=== PATIENT | female | born 1995 | race Caucasian/White ===

== ENCOUNTER 2024-09-01 18:57 | Emergency (ER) | payer SELFPAY ==
--- OUTSIDE RECORDS SUMMARY | 2024-09-01 18:59 | XMS_ITS | Encounter Summary ---
Author Organization [facility] Address [address] [place] [address] Phone Care Team Providers Care Operations Agent Name Role Phone Eduardo Lr MD Primary Care Provider Stormy Montanez MD Unavailable [phone] No, Physician Primary Care Provider [phone] Encounter Details Date Type Department Care Team (Late st Contact Info) Description 08/22/2017 Orders Only [facility] ProviderLashell MD [address] [place] [id number] Social History Tobacco Use Types Packs/Day Years Used Date Smoking Tobacco: Heavy Smoker Cigarettes 1 11 Smokeless Tobacco: Never Comments:Smoking History Pac ks/day: 1 Packs Alcohol Use Standard Drinks/Week Comments Yes 0 (1 standard drink = 0.6 oz pur e alcohol) Comments No Sex and Gender Information Value Date Recorded Sex Assigned at Not on file Legal Sex Female 9:49 AM SYSTEM ADMINISTRATION ADVISOR Gender Identity Female 06/24/2022 11:39 AM SYSTEM ADMINISTRATION ADVISOR Sexual Orientation Choose not to disclose 2022 11:39 AM SYSTEM ADMINISTRATION ADVISOR 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 [facility] Provider MD LAB BLOOD ORDERABLES Jaja l Result * DISCHARGE LABORATORY CUMULATIVE REPORT (08/22/2017 12:00 AM CDT) Narrative 08/22/2017 12:00 AM CDT Ordered by an unspecified provider. [facility] Provider MD LAB BLOOD ORDERABLES Jaja l Result documented in this encounter Visit Diagnoses Not on filedocumented in this encounter Additional Health Concerns Infection Onset Date Last Indicated Resolved Time COVID: Suspected 09/27/2021 09/27/2021 09/27/2021 9:00 PM CDT documented as of this encounter Care Teams Operations Agent Relationship Specialty Start Date End Date Eduardo Lr MD PCP - General 08/30/16 07/11/20 No, Physician PCP - General 10/16/23 Stormy Montanez MD [address] [place] [address] Obstetrics and Gynecology 11/20/16 documented as of this encounter
--- OUTSIDE RECORDS SUMMARY | 2024-09-01 18:59 | XMS_ITS | Encounter Summary ---
Author Organization [facility] Address [address] [place] [address] Phone Care Team Providers Care Field Health Officer Name Role Phone Eduardo Lr MD Primary Care Provider Stormy Montanez MD Unavailable [phone] No, Physician Primary Care Provider [phone] Encounter Details Date Type Department Care Team (Late st Contact Info) Description 09/29/2017 Orders Only [facility] Provider, MD Lashell [address] [place] [address] Social History Tobacco Use Types Packs/Day Years Used Date Smoking Tobacco: Heavy Smoker Cigarettes 1 11 Smokeless Tobacco: Never Comments:Smoking History Pac ks/day: 1 Packs Alcohol Use Standard Drinks/Week Comments Yes 0 (1 standard drink = 0.6 oz pur e alcohol) Comments No Sex and Gender Information Value Date Recorded Sex Assigned at Not on file Legal Sex Female 9:49 AM FORESTRY LABORER Gender Identity Female 06/24/2022 11:39 AM FORESTRY LABORER Sexual Orientation Choose not to disclose 2022 11:39 AM FORESTRY LABORER 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 us Historical Provider LAB BLOOD ORDERABLES Jaja l Result documented in this encounter Visit Diagnoses Not on filedocumented in this encounter Additional Health Concerns Infection Onset Date Last Indicated Resolved Time COVID: Suspected 09/27/2021 09/27/2021 09/27/2021 9:00 PM CDT documented as of this encounter Care Teams Field Health Officer Relationship Specialty Start Date End Date Eduardo Lr MD PCP - General 08/30/16 07/11/20 No, Physician PCP - General 10/16/23 Stormy Montanez MD [address] [place] [address] Obstetrics and Gynecology 11/20/16 documented as of this encounter
--- OUTSIDE RECORDS SUMMARY | 2024-09-01 19:00 | XMS_ITS | Referral Summary ---
Author Organization [facility] Address [address] [place] [address] Care Team Providers Care Delivery Coordinator Name Role Phone Stormy Montanez MD Unavailable [phone] No, Physician Primary Care Provider [phone] Encounters Date Type Department Care Team Description 08/10/2024 Telephone [facility] Obstetrical Gynecology [address] [place] [address] Chela Silver MD 07/06/2024 Telephone [facility] Obstetrical Gynecology [address] [place] [address] Chela Silver MD from Last 3 Months Allergies Active Allergy Reactions Criticality Noted Date Comments Latex Itching,Rash Medium Neuromuscular Blockers, Steroidal Prednisone Other (See comments) Low bone deterioration Medications valACYclovir (VALTREX) 500 mg tablet Take 1 tablet (500 mg total) by mouth daily 90 tablet 3 04/23/2024 Active metroNIDAZOLE (FLAGYL) 500 mg tablet Take 1 tablet (500 mg total) by mouth 2 (two) times a day for 7 days 14 tablet 08/11/2024 Active Problems Problem Noted Date Diagnosed Date Primary insomnia 09/04/2020 Assessment & Plan (09/04/2020 3:19 PM CDT): Remeron too strong - not taking Tried trazodone also Start Ambien - may take 1/2-1 tablet of 5mg pill PRN. Use sparingly Anxiety 07/24/2020 Assessment & Plan (09/04/2020 3:18 PM CDT): Improved with sertraline Assessment & Plan (07/24/2020 4:36 PM MEDICAL RECORD CLERK): Overall improved from previous, but recently worsening without medications. Start Sertraline - as above Encouraged to see counselor/therapist Given list of area counselors that she may try contacting for appt. 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 Continue current regimen with sertraline Assessment & Plan (09/04/2020 3:18 PM CDT): Improving, but not at goal Increase sertraline to 50mg daily Assessment & Plan (07/24/2020 4:34 PM MEDICAL RECORD CLERK): Depression and anxiety - not well controlled Start sertraline 25mg daily Discussed with patient about common side effects of medication including potential for worsening symptoms or new/worsening suicidal thoughts. Should this occur, patient should stop the medication immediately and call/RTC or go to ER. Medications for depression/anxiety can take up to 4-6 weeks to reach maximum effectiveness in the body. Call office to report any concerning side effects or new/worsening symptoms. Resolved Problems Problem Noted Date Diagnosed Date Resolved Date Adult BMI <19 kg/sq m 04/29/20172020 Abscess of right leg 04/29/2017 018 Assessment & Plan (05/02/2017 10:00 AM MEDICAL RECORD CLERK): I advised patient to continue on current dose of the Septra for the remaining 5 days of therapy is seeming to significantly help the improvement in wound. We also obtained a wound culture which will follow up with her on probably Friday or Friday of next week. Also close monitoring in our office within the next week to see if there is improvement symptoms. The area is somewhat quite indurated with expressive discharge with palpation around area and I am concerned that could be tunneled but she can't tolerate the pain of rechecking today. I did advised her that if symptoms worsen in between here in the week follow-up to come back in to our office or certainly Assessment & Plan (04/29/2017 4:18 PM MEDICAL RECORD CLERK): Still waiting for results of wound culture that was obtained on Friday to which I advised patient to continue on cephalexin as prescribed for the remaining 4 days of treatment but to cover better for Staph I prescribed Bactrim 1 tablet b.i.d. for the next 7 days on when to see her here in 3 days to see if there is any improvement in symptoms. Additionally I advised her of cleansing with Dial soap keeping open air as much as possible and certainly adequate hygiene as well. Close follow up in office regarding this condition and will see her here on Friday Annual physical exam 12/23/2016 021 Bacterial conjunctivitis 07/14/201411/2016 Overview (09/07/2016): Bacterial conjunctivitis Immunizations Immunization Administration Dates Next Due HPV9 06/09/2023,02/10/2023,12/17/2022 Hep A, Adult 04/09/2016 Influenza, Quadrivalent, Spl it, Preservative Free, Intradermal 04/09/2016 Influenza, Trivalent, IM (MDV) 01/31/2011 Influenza, Unspecified 03/02/2022(Deferr ed: Patient Refused),03/02/2020(Deferred: Patient Refused),03/02/2020(Deferred: Patient Refused),03/02/2020(Deferred: Patient Refused) TD Preservative Free 06/02/2010 Social History Tobacco Use Types Packs/Day Years Used Date Smoking Tobacco: Former Cigarettes 1 04 03 008 - 2019 Smokeless Tobacco: Never Tobacco Cessation:Counseling Given: Not Answered Comments:Smoking History Packs/day: 1 Packs Alcohol Use Standard Drinks/Week Comments Yes 0 (1 standard drink = 0.6 oz pur e alcohol) AUDIT-C Answer Date Recorded Q1: How often do you have a drink containing alc ohol? 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 Not on file Not on file Last Filed Vital Signs Vital Sign Reading Time Taken Comments Blood Pressure 120/76 04/23/2024 9:34 AM MEDICAL RECORD CLERK Pulse 86 10/30/2023 12:48 AM CDT Temperature 36.9 C (98.4 F) 10/29/2023 11:00 PM CDT Respiratory Rate 20 10/30/2023 12:48 AM CDT Oxygen Saturation 100% 10/29/2023 11:00 PM CDT Inhaled Oxygen Concentration - - Weight 69.9 kg (154 lb) 04/23/2024 9:34 AM MEDICAL RECORD CLERK Height 175.3 cm (5' 9.02 ) 04/23/2024 9:34 AM CS T Body Mass Index 22.73 04/23/2024 9:34 AM MEDICAL RECORD CLERK Plan of Treatment Not on file Procedures Procedure Name Priority Date/Time Associated Diagnosis Comments HEPATITIS C ANTIBODY Routine 04/23/2024 10:10 AM MEDICAL RECORD CLERK Well woman exam HIGH RISK HPV DNA DETECTION WITH GENOTYPING Routine 04/23/2024 9:54 AM MEDICAL RECORD CLERK from Last 3 Months or Most Recently Relevant to Health Maintenance Results * Hepatitis C antibody Blood (04/23/2024 10:10 AM MEDICAL RECORD CLERK) Hep C Ab Nonreactive Nonreactive Comment: Antibodies to HCV not detected. Does NOT exclude the possibility of recent exposure to HCV. Current interpretive data was last revised on 22 Interpretive Data Nonreactive: Antibodies to HCV not detected. Does NOT exclude the possibility of recent exposure to HCV. Equivocal: Equivocal for HCV antibodies. Supplemental molecular testing will be automatically performed to determine infection status in accordance with current CDC screening recommendations. Reactive: Positive for HCV antibodies. This may represent current or past HCV infection. Supplemental molecular testing will be automatically performed to determine current infection status in accordance with current CDC screening recommendations. Interpretive data was last revised on 2019. Blood 04/23/2024 10:1 0 AM MEDICAL RECORD CLERK 04/23/2024 2:22 PM MEDICAL RECORD CLERK us Chela Silver MD LAB MICROBIOLOGY - GENERAL ORDERABLES Final Result [facility] [address] Department [place] [address] * High Risk HPV DNA Detection with Genotyping (Molecular component) (04/23/2024 9:54 AM MEDICAL RECORD CLERK) HPV HR 16 Not Detected Not Detected [facility] Comment:Testing performed by : [facility] [place] [place]., [address] HPV HR 18 Not Detected Not Detected [facility] Comment:Testing performed by : [facility] [place] [place]., [address] HPV HR Non 16/18 Not Detected Not Detected [facility] Comment: Interpretive Data Nucleic acid amplification for detection of high-risk Human Papilloma virus (HPV) is performed by the Shivam Danielle 6800 HPV test. This assay specifically detects HPV-16 and HPV-18 genotypes. The following HPV genotypes are detected as high-risk HPV: HPV-31, 33, 35, ,39, 45, 51, 52, 56, 58, 59, 66, and 68. This assay has been approved by the [place] Food and Drug Administration for detection of HPV in cervical specimens collected by a physician using an endocervical brush/spatula or cervical broom and placed in the ThinPrep Pap Test PreservCyt collection containers. The performance characteristics of this test have been verified by the [facility] Molecular Infectious Disease laboratory. Correlate with separately reported cytology results, as applicable. Interpretive data last revised 22 Testing performed by: [facility] [place], [address] [facility], [place]., [address] Endocervical 04/23/2024 9:54 AM MEDICAL RECORD CLERK 04/27/2024 5:31 PM MEDICAL RECORD CLERK Chela Silver MD LAB BODY FLUIDS AND STOOLS ORDERABLES Final Result [facility] [address] [place] [address] [facility] from Last 3 Months or Most Recently Relevant to Health Maintenance Insurance [facility] IDPA IDPA Care Teams Delivery Coordinator Relationship Specialty Start Date End Date No, Physician PCP - General 10/16/23 Stormy Montanez MD [address] [place] [address] Obstetrics and Gynecology 11/20/16
--- OUTSIDE RECORDS SUMMARY | 2024-09-01 19:00 | XMS_ITS | Data Portability ---
Author Organization [place] - [place] [employer], [employer], [employer] - [id number] YOUSSEF MD [facility] Address [address] [place] [address] Assessment Encounter Date Assessment Date Assessment LastModified by Organization Details LastModified Time 08/04/2017 08/04/2017 Substance abuse Vulvovaginiti s Possible STD STD screening and vaginal cultures pelvic ultrasound will be requested later on this week. [email or web address] Not available 08/04/2017 15:50:04 08/11/2017 08/11/2017 Nexplanon removal [email or web address] Not available 08/11/2017 17:27:56 Plan of Treatment Reminders Order Date Submit Date Provider Last Modified By Organization Details Last Modified Time Details Appointments None recorded. Lab None recorded. Referral None recorded. Procedures None recorded. Surgeries None recorded. Imaging None recorded. Medication Orders Cleocin 100 mg vaginal suppositor y 2017 018 INTERFACE [id number], [address] [place], [address], 8 13:50:48 Patient TargetsNo targets recorded. Patient Instructions Encounter Date Encounter Id Patient Instructions Last Modified By Organization Details Last Modified Time 08/07/2017 [id number] bacterial vaginosis: care instructions [email or web address] Not available 08/07/2017 13:50:46 Reason for Referral None Reported. Results Created Date Observation Date Name Description Value Unit Range Abnormal Flag Note LastModifiedBy Organization Detail LastModifiedTime 08/05/19 18 08/05/2017 pap, IG + refle x HR HPV chlamydia, nuc. acid amp Negati ve negati ve Not Available [facility] ([facility]) [address] [facility], [place], [address], 08/06/2017 16:17:18 08/05/19 18 08/05/2017 pap, IG + refle x HR HPV gonococcus, nuc. acid amp Negati ve negati ve Not Available [facility] ([facility]) [address] [place], [address], 08/06/2017 16:17:18 08/05/19 18 08/06/2017 pap, IG + refle x HR HPV interpretati on NIL NEGAT SHANIQUA FOR INTRA EPITH ELIAL LESIO N AND MALIG MJ . Not Available [facility] ([facility]) [address] [place], [address], 08/06/2017 16:17:18 08/05/19 18 08/06/2017 pap, IG + refle x HR HPV category: NIL Negat shaniqua for Intra epith elial Lesio n Not Available [facility] ([facility]) [address] [place], [address], 08/06/2017 16:17:18 08/05/19 18 08/06/2017 pap, IG + refle x HR HPV infection: BVG PREDO MINAN CE OF [place] BACIL LI CONSI STENT WITH SHIFT IN VAGIN AL KELLEE IS PRESE NT. Not Available [facility] ([facility]) [address] [facility], [place], [address], 08/06/2017 16:17:18 08/05/19 18 08/06/2017 pap, IG + refle x HR HPV adequacy: SECNI Satis facto ry for evalu ation . No endoc ervic al compo nent is ident ified . Not Available [facility] ([facility]) [address] [place], [address], 08/06/2017 16:17:18 08/05/19 18 08/06/2017 pap, IG + refle x HR HPV clinician provided ICD10: Commen t Z11.3 Z12.4 Not Available [facility] ([facility]) [address] [place], [address], 08/06/2017 16:17:18 08/05/19 18 08/06/2017 pap, IG + refle x HR HPV performed by: Lissette Cleveland erd, Amber iverson Not Available [facility] ([facility]) [address] [place], [address], 08/06/2017 16:17:18 08/05/19 18 08/06/2017 pap, IG + refle x HR HPV pathologist provided ICD10: Lissette iverson R87.5 Not Available [facility] ([facility]) [address] [place], [address], 08/06/2017 16:17:18 08/05/19 18 08/06/2017 pap, IG + refle x HR HPV note: Lissette iverson The Pap smear is a scree gabriel test desig sheri to aid in the detec tion of maria esther ligna nt and malig nant condi tions of the uteri ne cervi x. It is not a diagn ostic proce dure and shoul d not be used as the sole means of detec ting cervi shiloh cance r. Both false -posi tive and false -nega tive repor ts do occur . Not Available [facility] ([facility]) [address] [place], [address], 08/06/2017 16:17:18 08/05/19 18 08/06/2017 pap, IG + refle x HR HPV test methodology: Lissette iverson This liqui d based ThinP rep(R ) pap test was scree sheri with the use of an image guide d syste m. Not Available [facility] ([facility]) [address] [place], [address], 08/06/2017 16:17:18 08/05/19 18 08/06/2017 pap, IG + refle x HR HPV . Lissette iverson The HPV DNA refle x crite liss were not met with this speci men resul t there fore, no HPV testi ng was perfo rmed. Not Available [facility] ([facility]) [address] [facility], [place], [address], 08/06/2017 16:17:18 08/05/19 18 08/07/2017 cultu re, urine urine culture,comp rehensive Final report Not Available [facility] ([facility]) [address] [facility], [place], [address], 08/07/2017 16:24:20 08/05/19 18 08/07/2017 cultu re, urine result 1 Commen t Mixed uroge nital kellee 10,00 0-25, 000 colon y formi ng units per mL Not Available [facility] ([facility]) [address] [facility], [place], [address], 08/07/2017 16:24:20 08/05/19 18 08/08/2017 cultu re, genit al, bacte rial genital culture, routine Final report abnormal Not Available [facility] ([facility]) [address] [facility], [place], [address], 08/08/2017 12:36:29 08/05/19 18 08/08/2017 cultu re, genit al, bacte rial result 1 Gardne rella vagina lis abnormal Light growt h Not Available [facility] ([facility]) [address] [facility], [place], [address], 08/08/2017 12:36:29 08/05/19 18 08/08/2017 cultu re, genit al, bacte rial result 2 Commen t No alyssa l kellee prese nt. Not Available [facility] ([facility]) [address] [place], [address], 08/08/2017 12:36:29 08/20/19 18 08/07/2017 US, pelvi s, trans abdom inal + trans vagin al No observ ation record ed. [email or web address] Not Available 08/01 13:26:36 Result Notes None recorded. Procedures Surgical History None recorded. Imaging Results Imaging Date Name Status LastModified by Organization Details LastModified Time 08/07/2017 US, pelvis, transabdominal + transvaginal completed [email or web address] Information not available 08/19/2017 13:26:36 Procedure Notes None recorded. Medical Equipment None Reported. Allergies Allergen ID Allergen Name Allergen Category Reaction Reaction Severity Criticality Documentation Date Start Date Code Code System Note Provider Name and Address Organization Details Recorded Time 057748 latex environme nt,medica tion Not available Not available Not available 08/04/2017 34608 91 RxNorm Jennifersoha [facility] 8 13:16:11 Medications Name Sig Start Date Stop Date Status Note LastModified by Organization Details LastModified Time clonidine HCl 0.1 mg tablet active Not Available Not Available Not Available fluconazole 150 mg tablet active Not Available Not Available Not Available valacyclovir 1 gram tablet TAKE 1 TABLET BY MOUTH EVERY 12 HOURS active Not Available Not Available No t Available naltrexone 50 mg tablet TAKE 1 TABLET BY MOUTH EVERY DAY active Not Available Not Available No t Available Monistat 7 2 % vaginal cream active Not Available Not Available Not Available olanzapine 5 mg tablet active Not Available Not Available No t Available Cleocin 100 mg vaginal suppository UNWRAP AND INSERT 1 SUPPOSITORY BY VAGINAL ROUTE EVERY DAY FOR 3 DAYS active Not Available Not Available No t Available hydroxyzine pamoate 50 mg capsule active Not Available Not Available N ot Available tramadol 50 mg tablet TAKE 1 TABLET BY MOUTH EVERY 4 TO 6 HOURS FOR 5 DAYS active Not Available Not Available No t Available baclofen 20 mg tablet active Not Available Not Available No t Available propranolol 10 mg tablet TAKE 1 TABLET BY MOUTH 3 TIMES A DAY active Not Available Not Available Not Available methocarbamo l 750 mg tablet active Not Available Not Available Not Available trazodone 100 mg tablet TAKE 1 AND 1/2 TO 2 FULL TABLETS EVERY NIGHT AT BEDTIME active Not Available Not Available N ot Available cephalexin 500 mg capsule TAKE ONE CAPSULE BY MOUTH TWICE A DAY active Not Available Not Available No t Available gabapentin 300 mg capsule active Not Available Not Available Not Available montelukast 10 mg tablet active Not Available Not Available Not Available prazosin 2 mg capsule TAKE 2 CAPSULES BY MOUTH AT BEDTIME active Not Available Not Available No t Available amoxicillin 875 mg-potassium clavulanate 125 mg tablet active Not Available Not Available Not Available escitalopram 10 mg tablet active Not Available Not Available Not Available escitalopram 20 mg tablet TAKE 1 TABLET BY MOUTH FOR 4 DAYS THEN INCREASE TO ONE AND HALF DAILY active Not Available Not Available N ot Available bupropion HCl XL 300 mg 24 hr tablet, extended release TAKE 1 TABLET BY MOUTH EVERY MORNING active Not Available Not Available No t Available Chest Congestion Relief 400 mg tablet active Not Available Not Available No t Available Suboxone 2 mg-0.5 mg sublingual film active Not Available Not Available Not Available Vitals Date Recorded Body height Heart rate Body mass index (BMI) Body weight Systolic blood pressure Diastolic blood pressure Provider Name and Address Organization Details Last Updated DateTime 8 173.99 cm 89 /min 23.1 kg/m2 08954.2 2 g 111 mm[Hg] 69 mm[Hg] [facility] [employer] [facility] 8 13:15:54 Social History Question Answer Notes LastModified by Organizat ion Details LastModified Time Tobacco Smoking Status Current Every Day Smoker [facility] [employer] 08/04/2017 13:16:30 What Was The Date Of Your Most Recent Tobacco Screening? 08/04/2017 Information n ot available 12/24/2018 Sex: Unknown Functional Status None recorded. Mental Status None recorded. Family History Relationship Description Onset Age of this Age Resolved Age Notes LastModified by Organization Details LastModified Time Father No current problems or disability [email or web address] Not available 08/04 13:16:20 Mother No current problems or disability [email or web address] Not available 08/04 13:16:20 Medical History No medical history recorded. Gynecological HistoryNo gynecological history recorded. Obstetrics History GPAL:G 0 P 0 0 0 0 Past Encounters Encounter ID Performer Location Encounter Start Date Encounter Closed Date Diagnosis/Indication Diagnosis SNOMED-CT Code Diagnosis ICD10 Code Diagnosis Note [id number] Asher Youssef MD [id number]_ [facility] [address] [place] [id number] 08/04/2017 12:23:07 08/04/2017 16:00:05 [id number] Asher Youssef MD [id number] [facility] [address] [place] [id number] 8 08/07/2017 12:56:35 08/07/2017 15:44:02 Bacterial vaginosis 024415964 N76.0 [id number] Asher Youssef MD [id number]_ [facility] [address] [id number] 08/11/2017 11:22:03 08/12/2017 08:31:48 [id number] Asher Youssef MD [id number]_ [facility] [address] [id number] 08/13/2017 11:30:17 08/13/2017 14:58:04 Health Concerns Section Related Observation LastModified by Organization Detai ls LastModified Time None Recorded Concern Status LastModified by Organization Details LastModified Time None Recorded Advance Directives Directive None Recorded Payers Encounter Date Sequence Insurance Name Policy Number Policy Del Castillo Covered Member ID Del Castillo Member ID Guarantor Name 08/04/2017 1 [employer] - [employer] - SELF FUNDED PLAN - PHCS (PPO) [facility] Satya Tay [id number] Nancie Tay 08/07/2017 1 [employer] - [employer] - SELF FUNDED PLAN - PHCS (PPO) [facility] Satya Tay [id number] Nancie Tay 08/11/2017 1 [employer] - [employer] - SELF FUNDED PLAN - PHCS (PPO) [facility] Satya Tay [id number] Nancie Tay 08/13/2017 1 [employer] - [employer] - SELF FUNDED PLAN - PHCS (PPO) [facility] Satya Tay [id number] Nancie Tay Notes Date Note Type Note Provider Name and Address Organization Details Recorded Time 08/04/2017 text/html New patient visi t for this 22-year-old female who is currently in rehabilitation from [place] the patient is doing well there states that she is feeling better and we'll probably never return to use of drugs again. The patient has not been sexually active in some time but feels that she may have been exposed to chlamydia prior to her moving to [place] and wishes to get checked she has a discharge with an odor. She is a nulliparous female has had chlamydia to other times. Gynecological the patient is not using any contraception and is concerned about her overall fertility.Patient states that she has never been and she has had multiple partners area the patient has the progestogen insert in her left arm which is now for 1 year.Past medical history is significant for alcohol her when and methods abusePast surgical history significant for right knee arthroscopic surgeryAllergies are significant to latex MD Kenna Allison[address] [facility], [address], [place], [address], [facility] [employer] [facility] 08/04/2017 15:50:33 08/07/2017 text/html Doug returns t o the office today for review of her ultrasound is generally unremarkable the uterus is within normal limits there is small amount of free fluid in the cervical area no masses the patient has had some pelvic pain STD cultures were negative the other culture is pending but the Pap smear is suggestive of BV the patient will be treated with Cleocin vaginal ovules. Also with regards to the progestogen inserted in the patient's left arm and is scheduled to be read on Friday. MD Rosio Allison [address] [facility], [address], [place], [address], [facility] [employer] 08/07/2017 15:39:44 08/11/2017 text/html new patient vismelissa t he was seen last week has a progestogen Nexplanon inserted in her left arm which is a year ago patient wishes to have it removed. MD Rosio Allison [address], [address], [place], [address], [facility] [employer] [facility] 08/13/2017 14:38:08 08/13/2017 text/html Doug returns t o the office today for an incision check status post removal of Implanon the incision is good a change in dressing was required. MD Rosio Allsion [address], [address], [place], [address], [facility] [employer] [facility] 08/13/2017 14:48:07 OBGyn Episode No OBEpisode recorded.
--- OUTSIDE RECORDS SUMMARY | 2024-09-01 19:00 | XMS_ITS | Encounter Summary ---
Author Organization [facility] Address [address] [place] [address] Phone Care Team Providers Care Machine Brusher Name Role Phone Eduardo Lr MD Primary Care Provider Stormy Montanez MD Unavailable [phone] No, Physician Primary Care Provider [phone] Encounter Details Date Type Department Care Team (Late st Contact Info) Description 05/20/2017 Orders Only [facility] Provider, MD Lashell [address] [place] [address] Social History Tobacco Use Types Packs/Day Years Used Date Smoking Tobacco: Heavy Smoker Cigarettes 1 11 Smokeless Tobacco: Never Comments:Smoking History Pac ks/day: 1 Packs Alcohol Use Standard Drinks/Week Comments Yes 0 (1 standard drink = 0.6 oz pur e alcohol) Comments No Sex and Gender Information Value Date Recorded Sex Assigned at Not on file Legal Sex Female 9:49 AM HEADHUNTER Gender Identity Female 06/24/2022 11:39 AM HEADHUNTER Sexual Orientation Choose not to disclose 2022 11:39 AM HEADHUNTER 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 us Historical Provider LAB BLOOD ORDERABLES Jaja l Result documented in this encounter Visit Diagnoses Not on filedocumented in this encounter Additional Health Concerns Infection Onset Date Last Indicated Resolved Time COVID: Suspected 09/27/2021 09/27/2021 09/27/2021 9:00 PM CDT documented as of this encounter Care Teams Machine Brusher Relationship Specialty Start Date End Date Eduardo Lr MD PCP - General 08/30/16 07/11/20 No, Physician PCP - General 10/16/23 Stormy Montanez MD [address] [place] [address] Obstetrics and Gynecology 11/20/16 documented as of this encounter
--- OUTSIDE RECORDS SUMMARY | 2024-09-01 19:00 | XMS_ITS | Clinical Summary ---
Author Organization [facility] Medical Office Building A Address [address] [place] [address] Care Team Providers Care Golf Coach Name Role Phone Stormy Montanez MD Unavailable [phone] No, Physician Primary Care Provider [phone] Allergies Active Allergy Reactions Criticality Noted Date [...] day for 7 days 14 tablet 08/11/2024 5 Active Problems Problem Noted Date Diagnosed Date Primary insomnia 09/04/2020 Assessment & Plan (09/04/2020 3:19 PM CDT): Remeron too strong - not taking Tried trazodone also Start Ambien - may take 1/2-1 tablet of 5mg pill PRN. Use sparingly Anxiety 07/24/2020 Assessment & Plan (09/04/2020 3:18 PM CDT): Improved with sertraline Assessment & Plan (07/24/2020 4:36 PM CASH APPLICATIONS REPRESENTATIVE): Overall improved from previous, but recently worsening without medications. Start Sertraline - as above Encouraged to see counselor/therapist Given list of area counselors that she may try contacting for appt. 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 Continue current regimen with sertraline Assessment & Plan (09/04/2020 3:18 PM CDT): Improving, but not at goal Increase sertraline to 50mg daily Assessment & Plan (07/24/2020 4:34 PM CASH APPLICATIONS REPRESENTATIVE): Depression and anxiety - not well controlled [...] 018 Assessment & Plan (05/02/2017 10:00 AM CASH APPLICATIONS REPRESENTATIVE): I advised patient to continue on current [...] certainly Assessment & Plan (04/29/2017 4:18 PM CASH APPLICATIONS REPRESENTATIVE): Still waiting for results of wound culture [...] Bacterial conjunctivitis 07/14/201411/2016 Overview (09/07/2016): Bacterial conjunctivitis Encounters Date Type Department Care Team Description 08/10/2024 Telephone [facility] Obstetrical Gynecology [address] [place] [address] Chela Silver MD 07/06/2024 Telephone [facility] Obstetrical Gynecology [address] [place] [address] Chela Silver MD from Last 3 Months Immunizations Immunization Administration Dates Next Due HPV9 06/09/2023,02/10/2023,12/17/2022 Hep A, Adult 04/09/2016 Influenza, Quadrivalent, Spl it, Preservative Free, Intradermal 04/09/2016 Influenza, Trivalent, IM (MDV) 01/31/2011 Influenza, Unspecified 03/02/2022(Deferr ed: Patient Refused),03/02/2020(Deferred: Patient Refused),03/02/2020(Deferred: Patient Refused),03/02/2020(Deferred: Patient Refused) TD Preservative Free 06/02/2010 Surgical History Surgery Date Site/Laterality Comments KNEE ARTHROSCOPY 06/02/2013 - 06/01/2014 Right WISDOM TOOTH EXTRACTION Medical History Medical History Date Comments Chlamydia 2016 Abnormal Pap smear of cervix 2016 ASC US, HPV (+) Positive test for herpes simplex virus (HSV) ant ibody 2017 types I & II History of drug use Anxiety Depression 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 Family History Medical History Relation Name Comments Pulmonary fibrosis Father Other Father's Brother usual inte rstitial pneumonia No Known Problems Mother Diabetes Paternal Grandmother Hypertension Paternal Grandmother Stroke Paternal Grandmother Anxiety disorder Sister Depression Sister Breast cancer Neg Hx Ovarian cancer Neg Hx Uterine cancer Neg Hx Relation Name Status Comments Father Father's Brother Mother Alive Paternal Grandmother Sister Alive Social History Tobacco Use Types Packs/Day Years Used Date Smoking Tobacco: Former Cigarettes 1 2018 Smokeless Tobacco: Never Tobacco Cessation:Counseling Given: Not Answered Comments:Smoking History Packs/day: 1 Packs Alcohol Use Standard Drinks/Week Comments Yes 0 (1 standard drink = 0.6 oz pur e alcohol) AUDIT-C Answer Date Recorded Q1: How often do you have a drink containing alc ohol? 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 Not on file Not on file Obstetrics History Para Term AB IAB SAB Ectopic Multiple Livin g Live Births 0 0 0 0 0 0 0 0 0 0 0 Last Filed Vital Signs Vital Sign Reading Time Taken Comments Blood Pressure 120/76 04/23/2024 9:34 AM CASH APPLICATIONS REPRESENTATIVE Pulse 86 10/30/2023 12:48 AM CDT Temperature 36.9 C (98.4 F) 10/29/2023 11:00 PM CDT Respiratory Rate 20 10/30/2023 12:48 AM CDT Oxygen Saturation 100% 10/29/2023 11:00 PM CDT Inhaled Oxygen Concentration - - Weight 69.9 kg (154 lb) 04/23/2024 9:34 AM CASH APPLICATIONS REPRESENTATIVE Height 175.3 cm (5' 9.02 ) 04/23/2024 9:34 AM CS T Body Mass Index 22.73 04/23/2024 9:34 AM CASH APPLICATIONS REPRESENTATIVE Plan of Treatment Health Maintenance Due Date Last Done Comments Varicella Vaccines (1 of 2 - 13+ 2-dose series) 2007 DTaP/Tdap/Td Vaccine (1 - Tdap) 06/03/2010 06/02/2010 Hepatitis B Screening 01/05/2012 Depression Screening 07/25/2023 07/25/2022, 07/24/2020, 07/24/2020, Additional history exists Influenza Vaccine (#1) 2024 04/09/2016, 2010 Cervical Cancer Screening 04/23/20252023, 04/23/2024, 12/05/2022 Regular Well Visit/Exam 18-64 04/23/2025 04/23/2024, 12/05/2022, 12/23/2016 HPV Vaccines Completed 06/09/2023, 01/31, 12/17/2022 Hepatitis C Screening Completed 04/23/2024 , 11/24/2023, 10/16/2023, Additional history exists Pneumococcal vaccine <65 Aged Out No longer eligible based on patient's age to complete this topic Procedures Procedure Name Priority Date/Time Associated Diagnosis Comments HEPATITIS C ANTIBODY Routine 04/23/2024 10:10 AM CASH APPLICATIONS REPRESENTATIVE Well woman exam HIGH RISK HPV DNA DETECTION WITH GENOTYPING Routine 04/23/2024 9:54 AM CASH APPLICATIONS REPRESENTATIVE from Last 3 Months or Most Recently Relevant to Health Maintenance Results * Hepatitis C antibody Blood (04/23/2024 10:10 AM CASH APPLICATIONS REPRESENTATIVE) Hep C Ab Nonreactive Nonreactive Comment: Antibodies [...] on 2019. Blood 04/23/2024 10:1 0 AM CASH APPLICATIONS REPRESENTATIVE 04/23/2024 2:22 PM CASH APPLICATIONS REPRESENTATIVE Chela Silver MD LAB MICROBIOLOGY - GENERAL ORDERABLES Final Result [facility] Department [place] [address] * High Risk HPV DNA Detection with Genotyping (Molecular component) (04/23/2024 9:54 AM CASH APPLICATIONS REPRESENTATIVE) HPV HR 16 Not Detected Not Detected [facility] Comment:Testing performed by : [facility], [address] [place]., [address] HPV HR 18 Not Detected Not Detected [facility] Comment:Testing performed by : [facility], [address] [place]., [address] HPV HR Non 16/18 Not Detected Not Detected [facility] Comment: Interpretive Data Nucleic acid amplification for [...] test have been verified by the [facility] Molecular Infectious Disease laboratory. Correlate with separately reported cytology results, as applicable. Interpretive data last revised 22 Testing performed by: [facility], [address] [place]., [address] Endocervical 04/23/2024 9:54 AM CASH APPLICATIONS REPRESENTATIVE 04/27/2024 5:31 PM CASH APPLICATIONS REPRESENTATIVE Chela Silver MD LAB BODY FLUIDS AND STOOLS ORDERABLES Final Result [facility] [address] [facility] [place] [employer] [place] [address] [facility] from Last 3 Months or Most Recently Relevant to Health Maintenance Insurance [employer] HMO [employer] HMO [place] IDPA Care Teams Golf Coach Relationship Specialty Start Date End Date No, Physician PCP - General 10/16/23 Stormy Montanez MD [address] [place] [address] Obstetrics and Gynecology 11/20/16
[2024-09-01 19:05] VITALS: BP 122/78; PULSE 111; RESP 16; TEMP 36.9; O2SAT 100
--- NOTE | 2024-09-01 19:10 | ED_ITS ---
HPI - Abdominal Pain General Chief Complaint: Abdominal Pain Stated Complaint: muscle pain/abdominal pain Time Seen by Provider: 09/01/24 19:10 Source: patient and RN notes reviewed Mode of arrival: ambulatory Limitations: no limitations History of Present Illness HPI narrative: 29-year-old female presented for complaint of left lower abdominal pain, left flank pain, constipation for 1 week. Also reports feeling extremely tired, headache and neck pain , and subjective fever. Denies nausea, vomiting. She took a laxative and a suppository yesterday. Related Data Allergies Allergy/AdvReac Type Severity Reaction Status Date / Time latex Allergy Intermediate Hives / Verified 09/01/24 19:13 Red Face prednisone Allergy Unknown Unknown Verified 09/01/24 19:13 Review of Systems Review of Systems: CONSTITUTIONAL: Denies body aches, fever, chills ENT: Denies rhinorrhea, congestion CARDIOVASCULAR: Denies chest pain, palpitations, or edema. RESPIRATORY: Denies cough or dyspnea. GASTROINTESTINAL: Endorses abdominal pain, constipation Denies nausea, vomiting, diarrhea GENITOURINARY: Denies dysuria, hematuria, or CVA tenderness. SKIN: Denies rash NEUROLOGIC: Denies headache, numbness, tingling, or weakness. All systems reviewed & are unremarkable except as noted in HPI and below PMFSH Comments At time of signature, I have reviewed and agree with nursing past medical, surgical, social and family history unless otherwise noted. Please see nursing chart for further information. There is no relevant family history pertinent to the presenting complaint Exam Narrative: GENERAL: Mildly ill appearing, tearful throughout encounter ENT: Mucous membranes pink and moist. CHEST: No respiratory distress. Clear to auscultation. HEART: Regular rate and rhythm. No murmur appreciated. Normal peripheral pulses. ABDOMEN: abd soft, nondistended, normal active bowel sounds. Tender abdomen left lower quadrant, Left CVA: No guarding, rebound tenderness, asymmetry SKIN: Warm, dry, no rash. Capillary refill normal. Normal skin turgor. NEURO: No focal deficits. Alert and oriented x3. Course Course Emergency Course: Patient is aware of diagnosis, understands and agrees to treatment plan. Anticipatory guidance given. Patient agrees to follow-up as directed and is aware of reasons to seek care at the emergency department. Portions of this record may have been created with voice recognition software Level of Care: Express Care Visit Vital Signs Vital signs: Vital Signs Temperature 98.4 F 09/01/24 19:05 Pulse Rate 111 H 09/01/24 19:05 Respiratory Rate 16 09/01/24 19:05 Blood Pressure 122/78 09/01/24 19:05 Pulse Oximetry 100 09/01/24 19:05 Oxygen Delivery Room Air 09/01/24 19:05 Temperature 98.4 F 09/01/24 19:05 Pulse Rate 111 H 09/01/24 19:05 Respiratory Rate 16 09/01/24 19:05 Blood Pressure 122/78 09/01/24 19:05 Pulse Oximetry 100 09/01/24 19:05 Oxygen Delivery Room Air 09/01/24 19:05 MDM - Abdominal Pain MDM Narrative Medical decision making narrative: Discussed physical exam findings; pt with abdominal pain, flank pain, constipat ion, fatigue, and headache. Advised ER transfer. Differential Diagnosis Differential diagnosis: Likely abdominal pain, acute appendicitis, calculus of kidney, constipation, diverticulitis, endometriosis, gastroenteritis, pancreatitis and small bowel obstruction Discharge Plan Discharge Clinical Impression: Abdominal pain Patient Disposition: Acute Care Hospital Condition: Stable Patient Language: Burmese Follow-up/Referrals: PHYSICIAN,BIOMASS PLANT TECHNICIAN [Primary Care Provider] - Time of Disposition: 19:22
== END 2024-09-01 19:45 | disposition short-term general hospital (02) ==
PROVIDERS: Emergency Provider Nurse Practitioner Family
DX: R10.32 Left lower quadrant pain (principal); R10.9 Unspecified abdominal pain
CPT/HCPCS: 99202; G0463

== ENCOUNTER 2024-09-02 20:06 | Emergency (ER) | payer SELFPAY ==
--- NOTE | ~2024-09-02 | XR_ITS ---
EXAM: XR abdomen/kub 1V DATE: 09/02/2024 22:35 HISTORY: concern for constipation . COMPARISON: None available. FINDINGS: Clear lung bases. Moderate volume of colonic fecal material, otherwise normal bowel gas pa ttern. No organomegaly. IUD over the midline pelvis. Pelvic phleboliths. Heterogeneous calcification over the left abdomen, may represent pancreatic calcification or ingested material. Regional bones an d soft tissues normal for age. IMPRESSION: No radiographic evidence of obstruction or ileus. Moderate volume of colonic feces. Reviewed, dictated and finalized at location K. IMPRESSION: No radiographic evidence of obstruction or ileus. Moderate volume o f colonic feces.
--- OUTSIDE RECORDS SUMMARY | 2024-09-02 20:08 | XMS_ITS | Encounter Summary ---
Author Organization [facility] Address [address] [place] [address] Phone Care Team Providers Care Armature Rewinder Name Role Phone Eduardo Lr MD Primary Care Provider Stormy Montanez MD Unavailable [phone] No, Physician Primary Care Provider [phone] Encounter Details Date Type Department Care Team (Late st Contact Info) Description 08/22/[address] 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 [facility] Provider MD LAB BLOOD ORDERABLES Jaja l Result * DISCHARGE LABORATORY CUMULATIVE REPORT (08/22/2017 12:00 AM CDT) Narrative 08/22/2017 12:00 AM CDT Ordered by an unspecified provider. [facility] Provider MD LAB BLOOD ORDERABLES Jaja l Result documented in this encounter Visit Diagnoses Not on filedocumented in this encounter Additional Health Concerns Infection Onset Date Last Indicated Resolved Time COVID: Suspected 09/27/2021 09/27/2021 09/27/2021 9:00 PM CDT documented as of this encounter Care Teams Armature Rewinder Relationship Specialty Start Date End Date Eduardo Lr MD PCP - General 08/30/16 07/11/20 No, Physician PCP - General 10/16/23 Stormy Montanez MD [address] [place] [address] Obstetrics and Gynecology 11/20/16 documented as of this encounter
--- OUTSIDE RECORDS SUMMARY | 2024-09-02 20:08 | XMS_ITS | Clinical Summary ---
Author Organization [facility] Medical Office Building A Address [address] [place] [address] Care Team Providers Care International Trade Specialist Name Role Phone Stormy Montanez MD Unavailable [phone] No, Physician Primary Care Provider [phone] Allergies Active Allergy Reactions Criticality Noted Date [...] sertraline Assessment & Plan (07/24/2020 4:36 PM INSPECTOR ASSEMBLIES AND INSTALLATIONS): Overall improved from previous, but recently worsening without medications. Start Sertraline - as above Encouraged to see counselor/therapist Given list of area counselors that she may try contacting for appt. 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 Continue current regimen with sertraline Assessment & Plan (09/04/2020 3:18 PM CDT): Improving, but not at goal Increase sertraline to 50mg daily Assessment & Plan (07/24/2020 4:34 PM INSPECTOR ASSEMBLIES AND INSTALLATIONS): Depression and anxiety - not well controlled [...] 018 Assessment & Plan (05/02/2017 10:00 AM INSPECTOR ASSEMBLIES AND INSTALLATIONS): I advised patient to continue on current [...] certainly Assessment & Plan (04/29/2017 4:18 PM INSPECTOR ASSEMBLIES AND INSTALLATIONS): Still waiting for results of wound culture [...] Type Department Care Team Description 08/10/2024 Telephone [facility] Obstetrical Gynecology [address] [place] [address] Chela Silver MD 07/06/2024 Telephone [facility] Obstetrical Gynecology [address] [place] [address] Chela Silver MD from Last [...] on file Legal Sex Female 9:49 AM INSPECTOR ASSEMBLIES AND INSTALLATIONS Gender Identity Female 06/24/2022 11:39 AM INSPECTOR ASSEMBLIES AND INSTALLATIONS Sexual Orientation Choose not to disclose 2022 11:39 AM INSPECTOR ASSEMBLIES AND INSTALLATIONS 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 Not on file Not on file Obstetrics History Para Term AB IAB SAB Ectopic Multiple Livin g Live Births 0 0 0 0 0 0 0 0 0 0 0 Last Filed Vital Signs Vital Sign Reading Time Taken Comments Blood Pressure 120/76 04/23/2024 9:34 AM INSPECTOR ASSEMBLIES AND INSTALLATIONS Pulse 86 10/30/2023 12:48 AM CDT Temperature 36.9 C (98.4 F) 10/29/2023 11:00 PM CDT Respiratory Rate 20 10/30/2023 12:48 AM CDT Oxygen Saturation 100% 10/29/2023 11:00 PM CDT Inhaled Oxygen Concentration - - Weight 69.9 kg (154 lb) 04/23/2024 9:34 AM INSPECTOR ASSEMBLIES AND INSTALLATIONS Height 175.3 cm (5' 9.02 ) 04/23/2024 9:34 AM CS T Body Mass Index 22.73 04/23/2024 9:34 AM INSPECTOR ASSEMBLIES AND INSTALLATIONS Plan of Treatment Health Maintenance Due Date [...] HEPATITIS C ANTIBODY Routine 04/23/2024 10:10 AM INSPECTOR ASSEMBLIES AND INSTALLATIONS Well woman exam HIGH RISK HPV DNA DETECTION WITH GENOTYPING Routine 04/23/2024 9:54 AM INSPECTOR ASSEMBLIES AND INSTALLATIONS from Last 3 Months or Most Recently Relevant to Health Maintenance Results * Hepatitis C antibody Blood (04/23/2024 10:10 AM INSPECTOR ASSEMBLIES AND INSTALLATIONS) Hep C Ab Nonreactive Nonreactive Comment: Antibodies [...] on 2019. Blood 04/23/2024 10:1 0 AM INSPECTOR ASSEMBLIES AND INSTALLATIONS 04/23/2024 2:22 PM INSPECTOR ASSEMBLIES AND INSTALLATIONS Chela Silver MD LAB MICROBIOLOGY - GENERAL ORDERABLES Final Result [facility] [facility] Department [place] [address] * High Risk HPV DNA Detection with Genotyping (Molecular component) (04/23/2024 9:54 AM INSPECTOR ASSEMBLIES AND INSTALLATIONS) HPV HR 16 Not Detected Not Detected [facility] Comment:Testing performed by : [facility], [address] [place]., [address] HPV HR 18 Not Detected Not Detected [facility] Comment:Testing performed by : [facility], [address] [place]., [address] HPV HR Non 16/18 Not Detected Not [...] have been verified by the [facility] Molecular Infectious Disease laboratory. Correlate with separately reported cytology results, as applicable. Interpretive data last revised 22 Testing performed by: [facility], [address] [place]., [address] Endocervical 04/23/2024 9:54 AM INSPECTOR ASSEMBLIES AND INSTALLATIONS 04/27/2024 5:31 PM INSPECTOR ASSEMBLIES AND INSTALLATIONS Chela Silver MD LAB BODY FLUIDS AND STOOLS ORDERABLES Final Result [facility] [address] [facility] [place] [address] [facility] from Last 3 Months or Most Recently Relevant to Health Maintenance Insurance [employer] HMO [employer] HMO [place] IDPA Care Teams International Trade Specialist Relationship Specialty Start Date End Date No, Physician PCP - General 10/16/23 Stormy Montanez MD [address] [place] [address] Obstetrics and Gynecology 11/20/16
--- OUTSIDE RECORDS SUMMARY | 2024-09-02 20:08 | XMS_ITS | Encounter Summary ---
Author Organization [facility] Address [address] [place] [address] Phone Care Team Providers Care Solar Energy Technician Name Role Phone Eduardo Lr MD Primary Care Provider Stormy Montanez MD Unavailable [phone] No, Physician Primary Care Provider [phone] Encounter Details Date Type Department Care Team (Late st Contact Info) Description 09/29/2017 Orders Only [facility] Provider, MD Lashell [address] [place] [address] Social History Tobacco Use Types Packs/Day Years Used Date Smoking Tobacco: Heavy Smoker Cigarettes 1 11 Smokeless Tobacco: Never Comments:Smoking History Pac ks/day: 1 Packs Alcohol Use Standard Drinks/Week Comments Yes 0 (1 standard drink = 0.6 oz pur e alcohol) Comments No Sex and Gender Information Value Date Recorded Sex Assigned at Not on file Legal Sex Female 9:49 AM TECHNOLOGIES DIVISION CHAIR Gender Identity Female 06/24/2022 11:39 AM TECHNOLOGIES DIVISION CHAIR Sexual Orientation Choose not to disclose 2022 11:39 AM TECHNOLOGIES DIVISION CHAIR 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
--- OUTSIDE RECORDS SUMMARY | 2024-09-02 20:09 | XMS_ITS | Encounter Summary ---
Author Organization [facility] Address [address] [place] [address] Phone Care Team Providers Care Account General Manager Name Role Phone Eduardo Lr MD Primary Care Provider Stormy Montanez MD Unavailable [phone] No, Physician Primary Care Provider [phone] Encounter Details Date Type Department Care Team (Late st Contact Info) Description 05/20/2017 Orders Only [facility] Provider, MD Lashell [address] [place] [address] Social History Tobacco Use Types Packs/Day Years Used Date Smoking Tobacco: Heavy Smoker Cigarettes 1 11 Smokeless Tobacco: Never Comments:Smoking History Pac ks/day: 1 Packs Alcohol Use Standard Drinks/Week Comments Yes 0 (1 standard drink = 0.6 oz pur e alcohol) Comments No Sex and Gender Information Value Date Recorded Sex Assigned at Not on file Legal Sex Female 9:49 AM CRIB PAD MAKER Gender Identity Female 06/24/2022 11:39 AM CRIB PAD MAKER Sexual Orientation Choose not to disclose 2022 11:39 AM CRIB PAD MAKER 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 us Historical Provider LAB BLOOD ORDERABLES Jaja l Result documented in this encounter Visit Diagnoses Not on filedocumented in this encounter Additional Health Concerns Infection Onset Date Last Indicated Resolved Time COVID: Suspected 09/27/2021 09/27/2021 09/27/2021 9:00 PM CDT documented as of this encounter Care Teams Account General Manager Relationship Specialty Start Date End Date Eduardo Lr MD PCP - General 08/30/16 07/11/20 No, Physician PCP - General 10/16/23 Stormy Montanez MD [address] [place] [address] Obstetrics and Gynecology 11/20/16 documented as of this encounter
--- OUTSIDE RECORDS SUMMARY | 2024-09-02 20:09 | XMS_ITS | Referral Summary ---
Author Organization [facility] Medical Office Building A Address [address] [place] [address] Care Team Providers Care Alligator Trapper Name Role Phone Stormy Montanez MD Unavailable [phone] No, Physician Primary Care Provider [phone] Encounters Date Type Department Care Team Description 08/10/2024 Telephone [facility] Medical [facility] Obstetrical Gynecology [address] [place] [address] Chela Silver MD 07/06/2024 Telephone [facility] Obstetrical Gynecology [address] [place] [address] Chela Silver MD from Last [...] sertraline Assessment & Plan (07/24/2020 4:36 PM SENIOR SPECIALIST): Overall improved from previous, but recently worsening without medications. Start Sertraline - as above Encouraged to see counselor/therapist Given list of area counselors that she may try contacting for appt. 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 Continue current regimen with sertraline Assessment & Plan (09/04/2020 3:18 PM CDT): Improving, but not at goal Increase sertraline to 50mg daily Assessment & Plan (07/24/2020 4:34 PM SENIOR SPECIALIST): Depression and anxiety - not well controlled [...] 018 Assessment & Plan (05/02/2017 10:00 AM SENIOR SPECIALIST): I advised patient to continue on current [...] certainly Assessment & Plan (04/29/2017 4:18 PM SENIOR SPECIALIST): Still waiting for results of wound culture [...] on file Legal Sex Female 9:49 AM SENIOR SPECIALIST Gender Identity Female 06/24/2022 11:39 AM SENIOR SPECIALIST Sexual Orientation Choose not to disclose 2022 11:39 AM SENIOR SPECIALIST 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 Not on file Last Filed Vital Signs Vital Sign Reading Time Taken Comments Blood Pressure 120/76 04/23/2024 9:34 AM SENIOR SPECIALIST Pulse 86 10/30/2023 12:48 AM CDT Temperature 36.9 C (98.4 F) 10/29/2023 11:00 PM CDT Respiratory Rate 20 10/30/2023 12:48 AM CDT Oxygen Saturation 100% 10/29/2023 11:00 PM CDT Inhaled Oxygen Concentration - - Weight 69.9 kg (154 lb) 04/23/2024 9:34 AM SENIOR SPECIALIST Height 175.3 cm (5' 9.02 ) 04/23/2024 9:34 AM CS T Body Mass Index 22.73 04/23/2024 9:34 AM SENIOR SPECIALIST Plan of Treatment Not on file Procedures Procedure Name Priority Date/Time Associated Diagnosis Comments HEPATITIS C ANTIBODY Routine 04/23/2024 10:10 AM SENIOR SPECIALIST Well woman exam HIGH RISK HPV DNA DETECTION WITH GENOTYPING Routine 04/23/2024 9:54 AM SENIOR SPECIALIST from Last 3 Months or Most Recently Relevant to Health Maintenance Results * Hepatitis C antibody Blood (04/23/2024 10:10 AM SENIOR SPECIALIST) Hep C Ab Nonreactive Nonreactive Comment: Antibodies [...] on 2019. Blood 04/23/2024 10:1 0 AM SENIOR SPECIALIST 04/23/2024 2:22 PM SENIOR SPECIALIST us Chela Silver MD LAB MICROBIOLOGY - GENERAL ORDERABLES Final Result [facility] [address] [place] [address] * High Risk HPV DNA Detection with Genotyping (Molecular component) (04/23/2024 9:54 AM SENIOR SPECIALIST) HPV HR 16 Not Detected Not Detected [facility] Comment:Testing performed by : [facility], [address] [place]., [address] HPV HR 18 Not Detected Not Detected [facility] Comment:Testing performed by : [facility], [address] [place]., [address] HPV HR Non 16/18 Not Detected Not [...] this test have been verified by the [facility] Molecular Infectious Disease laboratory. Correlate with separately reported cytology results, as applicable. Interpretive data last revised 22 Testing performed by: [facility], [address] [facility] [facility], [place]., [address] Endocervical 04/23/2024 9:54 AM SENIOR SPECIALIST 04/27/2024 5:31 PM SENIOR SPECIALIST Chela Silver MD LAB BODY FLUIDS AND STOOLS ORDERABLES Final Result [facility] [address] [place] [address] [facility] from Last 3 Months or Most Recently Relevant to Health Maintenance Insurance [facility] HMO [facility] H[facility] IDPA IDPA Care Teams Alligator Trapper Relationship Specialty Start Date End Date No, Physician PCP - General 10/16/23 Stormy Montanez MD [address] [place] [address] Obstetrics and Gynecology 11/20/16
--- OUTSIDE RECORDS SUMMARY | 2024-09-02 20:09 | XMS_ITS | Data Portability ---
Author Organization [place] [facility] [place] ilab, [employer], autoContract - [id number] YOUSSEF MD [facility] Address [address] [place] [address] Assessment Encounter Date Assessment Date Assessment LastModified [...] y 2017 018 INTERFACE [id number], [address] [place], [address], 8 13:50:48 Patient TargetsNo targets recorded. Patient Instructions Encounter Date Encounter Id Patient Instructions Last Modified By Organization Details Last Modified Time 08/07/2017 [id number] bacterial vaginosis: care instructions rconlen Not available 08/07/2017 13:50:46 Reason for Referral None Reported. Results Created Date Observation Date Name Description Value Unit Range Abnormal Flag Note LastModifiedBy Organization Detail LastModifiedTime 08/05/19 18 08/05/2017 pap, IG + refle x HR HPV chlamydia, nuc. acid amp Negati ve negati ve Not Available [facility] ([facility]) [address], [place], [address], 08/06/2017 16:17:18 08/05/19 18 08/05/2017 pap, IG + refle x HR HPV gonococcus, nuc. acid amp Negati ve negati ve Not Available [facility] ([facility]) [address] [place], [address], 08/06/2017 16:17:18 08/05/19 18 08/06/2017 pap, IG + refle x HR HPV interpretati on NIL NEGAT SHANIQUA FOR INTRA EPITH ELIAL LESIO N AND MALIG MJ . Not Available [facility] ([facility]) [address] [place], [address], 08/06/2017 16:17:18 08/05/19 18 08/06/2017 pap, IG + refle x HR HPV category: NIL Negat shaniqua for Intra epith elial Lesio n Not Available [facility] ([facility]) [address] [place], [address], 08/06/2017 16:17:18 08/05/19 18 08/06/2017 pap, IG + refle x HR HPV infection: BVG PREDO MINAN CE OF [place] BACIL LI CONSI STENT WITH SHIFT IN VAGIN AL KELLEE IS PRESE NT. Not Available [facility] ([facility]) [address] [facility], [place], [address], 08/06/2017 16:17:18 08/05/19 18 08/06/2017 pap, IG + refle x HR HPV adequacy: SECNI Satis facto ry for evalu ation . No endoc ervic al compo nent is ident ified . Not Available [facility] ([facility]) [address] [place], [address], 08/06/2017 16:17:18 08/05/19 18 08/06/2017 pap, IG + refle x HR HPV clinician provided ICD10: Commen t Z11.3 Z12.4 Not Available [facility] ([facility]) [address] [place], [address], 08/06/2017 16:17:18 08/05/19 18 08/06/2017 pap, IG + refle x HR HPV performed by: Lissette Cleveland erd, Amber iverson Not Available [facility] ([facility]) [address] [place], [address], 08/06/2017 16:17:18 08/05/19 18 08/06/2017 pap, IG + refle x HR HPV pathologist provided ICD10: Lissette iverson R87.5 Not Available [facility] ([facility]) [address] [place], [address], 08/06/2017 16:17:18 08/05/19 18 08/06/2017 pap, IG [...] ts do occur . Not Available [facility] ([facility]) [address] [place], [address], 08/06/2017 16:17:18 08/05/19 18 08/06/2017 pap, IG + refle x HR HPV test methodology: Lissette iverson This liqui d based ThinP rep(R ) pap test was scree sheri with the use of an image guide d syste m. Not Available [facility] ([facility]) [address] [place], [address], 08/06/2017 16:17:18 08/05/19 18 08/06/2017 pap, IG + refle x HR HPV . Lissette iverson The HPV DNA refle x crite liss were not met with this speci men resul t there fore, no HPV testi ng was perfo rmed. Not Available [facility] ([facility]) [address] [facility], [place], [address], 08/06/2017 16:17:18 08/05/19 18 08/07/2017 cultu re, urine urine culture,comp rehensive Final report Not Available [facility] ([facility]) [address] [facility], [place], [address], 08/07/2017 16:24:20 08/05/19 18 08/07/2017 cultu re, urine result 1 Commen t Mixed uroge nital kellee 10,00 0-25, 000 colon y formi ng units per mL Not Available [facility] ([facility]) [address] [facility], [place], [address], 08/07/2017 16:24:20 08/05/19 18 08/08/2017 cultu re, genit al, bacte rial genital culture, routine Final report abnormal Not Available [facility] ([facility]) [address] [facility], [place], [address], 08/08/2017 12:36:29 08/05/19 18 08/08/2017 cultu re, genit al, bacte rial result 1 Gardne rella vagina lis abnormal Light growt h Not Available [facility] ([facility]) [address] [facility], [place], [address], 08/08/2017 12:36:29 08/05/19 18 08/08/2017 cultu re, genit al, bacte rial result 2 Commen t No alyssa l kellee prese nt. Not Available [facility] ([facility]) [address] [place], [address], 08/08/2017 12:36:29 08/20/19 18 08/07/2017 US, pelvi s, trans abdom inal + trans vagin al No observ ation record ed. [email or web address] Not Available 08/01 13:26:36 Result Notes None recorded. Procedures Surgical History None recorded. Imaging Results Imaging Date Name Status LastModified by Organization Details LastModified Time 08/07/2017 US, pelvis, transabdominal + transvaginal completed [email or web address] Information not available 08/19/2017 13:26:36 Procedure Notes None recorded. Medical Equipment None Reported. Allergies Allergen ID Allergen Name Allergen Category Reaction Reaction Severity Criticality Documentation Date Start Date Code Code System Note Provider Name and Address Organization Details Recorded Time [id number] latex environme nt,medica tion Not available Not available Not available 08/04/2017 33969 91 RxNorm Jennifersoha Fortune[facility] 8 13:16:11 Medications Name Sig Start Date [...] 8 173.99 cm 89 /min 23.1 kg/m2 80151.2 2 g 111 mm[Hg] 69 mm[Hg] [facility] [employer] [facility] 8 13:15:54 Social History Question Answer Notes LastModified by Organizat ion Details LastModified Time Tobacco Smoking Status Current Every Day Smoker [facility] [employer] 08/04/2017 13:16:30 What Was The Date Of Your Most Recent Tobacco Screening? 08/04/2017 Information n ot available 12/24/2018 Sex: Unknown Functional Status None recorded. Mental Status None recorded. Family History Relationship Description Onset Age of this Age Resolved Age Notes LastModified by Organization Details LastModified Time Father No current problems or disability [email or web address] Not available 08/04 13:16:20 Mother No current problems or disability [email or web address] Not available 08/04 13:16:20 Medical History No medical history recorded. Gynecological HistoryNo gynecological history recorded. Obstetrics History GPAL:G 0 P 0 0 0 0 Past Encounters Encounter ID Performer Location Encounter Start Date Encounter Closed Date Diagnosis/Indication Diagnosis SNOMED-CT Code Diagnosis ICD10 Code Diagnosis Note [id number] Asher Youssef MD [id number]_ [facility] [address] [place] [id number] 08/04/2017 12:23:07 08/04/2017 16:00:05 [id number] Asher Youssef MD [id number] [facility] [address] [place] [id number] 08/07/2017 12:56:35 08/07/2017 15:44:02 Bacterial vaginosis 274152276 N76.0 [id number] Asher Youssef MD [id number]_ [facility] [address] [id number] 08/11/2017 11:22:03 08/12/2017 08:31:48 [id number] Asher Youssef MD [id number]_ [facility] [address] [phone] 08/13/2017 11:30:17 08/13/2017 14:58:04 Health Concerns [...] - SELF FUNDED PLAN - PHCS (PPO) [facility] Satya Tay [id number] Nancie Tay 08/07/2017 1 [employer] - [employer] - SELF FUNDED PLAN - PHCS (PPO) [facility] Satya Tay [id number] Nancie Tay 08/11/2017 1 [employer] - [employer] - SELF FUNDED PLAN - PHCS (PPO) [facility] Satya Tay [id number] Nancie Tay 08/13/2017 1 [employer] - [employer]ICAL PLANS - SELF FUNDED PLAN - PHCS (PPO) [facility] Satya Tay [id number] Nancie Tay Notes Date Note Type Note Provider Name and Address Organization Details Recorded Time 08/04/2017 text/html New patient visi t for this 22-year-old female who is currently in rehabilitation from [place] the patient is doing well there states that she is feeling better and we'll probably never return to use of drugs again. The patient has not been sexually active in some time but feels that she may have been exposed to chlamydia prior to her moving to [place] and wishes to get checked she has [...] latex MD Kenna Allison[address] [facility], [address], [place], [address], [facility] [employer] [facility] 08/04/2017 15:50:33 08/07/2017 text/html Doug returns t [...] Friday. MD Rosio Allison [address] [facility], [address], [place], [address], [facility] [employer] 08/07/2017 15:39:44 08/11/2017 text/html new patient vismelissa t he was seen last week has a progestogen Nexplanon inserted in her left arm which is a year ago patient wishes to have it removed. MD Rosio Allison [address], [address], [place], [address], [facility] [employer] [facility] 08/13/2017 14:38:08 08/13/2017 text/html Doug returns t o the office today for an incision check status post removal of Implanon the incision is good a change in dressing was required. MD Rosio Allison [address], [address], [place], [address], [facility] 08/13/2017 14:48:07 OBGyn Episode No OBEpisode recorded.
[2024-09-02 20:12] VITALS: BP 128/79; PULSE 120; RESP 16; TEMP 39.4; O2SAT 100
[2024-09-02 21:28] VITALS: BP 121/73; PULSE 105; RESP 14; TEMP 37.7; O2SAT 100
[2024-09-02 21:29] VITALS: BP 121/73; PULSE 108; RESP 19
[2024-09-02 21:31] VITALS: BP 109/87; PULSE 110; RESP 15
[2024-09-02 21:42] LABS: Basophils Percent Auto 0.2 % (0.2-1.2); Hematocrit 36.2 % (37.0-47.0); Hemoglobin 11.5 g/dL (12.0-15.0); Immature Granulocyte Absolute 0.11 K/mm3 (0.00-0.031); Lymphocytes Absolute Auto 0.68 K/mm3 (0.9-3.2); Mean Corpuscular HGB Conc 31.8 g/dl (32-36); Mean Corpuscular Hemoglobin 29.1 pg (26-34); Mean Corpuscular Volume 91.6 fl (80-100); Mean Platelet Volume 9.6 fl (7.4-10.4); Monocytes Absolute Auto 1.4 K/mm3 (0.1-0.6); Monocytes Percent Auto 12.2 % (2.6-8.5); Neutrophils Absolute Auto 9.2 K/mm3 (1.3-6.7); Neutrophils Percent Auto 80.6 % (45.5-73.1); Platelet Count Result 224 k/mm3 (150-375); Red Blood Count 3.95 M/mm3 (4.2-5.4); Red Cell Distribution Width 12.8 % (11.5-14.5); White Blood Count 11.4 K/mm3 (4.5-10.0)
[2024-09-02 21:46] VITALS: BP 100/56; PULSE 102; RESP 20; O2SAT 97
[2024-09-02 21:49] LABS: Alanine Aminotransferase 76 U/L (6-35); Alkaline Phosphatase 186 U/L (38-126); Anion Gap 7 mmol/L (4-12); Aspartate Amino Transferase 58 U/L (14-36); Bilirubin,Total 0.8 mg/dL (0.2-1.3); Blood Urea Nitrogen 10 mg/dL (7-17); Calcium 8.8 mg/dL (8.4-10.2); Carbon Dioxide 28 mmol/L (22-30); Chloride 95 mmol/L (98-107); Estimated CRCL calculation 87 ml/min; Estimated Glomerular Filt Rate > 60; Glucose 111 mg/dL (65-110); Lipase 26 U/L (23-300); Sodium 130 mmol/L (137-145)
--- NOTE | 2024-09-02 21:56 | ED_ITS ---
HPI - Abdominal Pain General Chief Complaint: Abdominal Pain Stated Complaint: LLQ pain, constipation-sent by Time Seen by Provider: 09/02/24 21:19 History of Present Illness HPI narrative: Patient is a 29-year-old female who presents to the ER with complaints of rectal pain that started approximately 1 week ago. She reports she had ?rough anal sex and has been unable to have a bowel movement since then. Patient reports at home she is taking milk of magnesia without any relief. She also endorses a headache for the past 3 days. Patient denies any medical history relevant to this ER visit. Related Data Allergies Allergy/AdvReac Type Severity Reaction Status Date / Time latex Allergy Intermediate Hives / Verified 09/01/24 19:13 Red Face prednisone Allergy Unknown Unknown Verified 09/01/24 19:13 Review of Systems 2 Review of Systems: All systems reviewed & are unremarkable except as noted in HPI and below Exam 2 Narrative: GENERAL: Well appearing, well-nourished, non-toxic, in mild distress. HEAD: Normocephalic, atraumatic. NECK: Supple. No adenopathy, no masses. RESPIRATORY: Airway patent, respirations nonlabored. Clear to auscultation bilaterally, no rales, rhonchi, wheezing. CARDIOVASCULAR: Regular rate and rhythm without murmurs, rubs, or gallops. Peripheral pulses 2+ and equal bilaterally. ABDOMINAL: Soft, tender bilateral lower quadrants, nondistended, no hepatosplenomegaly. Normoactive BS. MUSCULOSKELETAL: Moves all extremities. Strength/ROM intact without gross deformities. SKIN: Warm, dry, normal color. No rashes. NEURO: A&O X3. Speech clear. Cranial nerves II-XII intact. No ataxic movements. PSYCHIATRIC: Tearful at time of examination Course Vital Signs Vital signs: Vital Signs Temperature 39.4 C H 09/02/24 20:12 Pulse Rate 120 H 09/02/24 20:12 Respiratory Rate 16 09/02/24 20:12 Blood Pressure 128/79 09/02/24 20:12 Pulse Oximetry 100 09/02/24 20:12 Oxygen Delivery Room Air 09/02/24 20:12 Temperature 37.7 C H 09/02/24 21:28 Pulse Rate 105 H 09/02/24 21:28 Respiratory Rate 14 09/02/24 21:28 Blood Pressure 121/73 09/02/24 21:28 Pulse Oximetry 100 09/02/24 21:28 Oxygen Delivery Room Air 09/02/24 20:12 MDM - Abdominal Pain MDM Narrative Medical decision making narrative: Patient is a 29-year-old female who presents to the ER with complaints of rectal pain that started approximately 1 week ago. She reports she had ?rough anal sex and has been unable to have a bowel movement since then. Patient reports at home she is taking milk of magnesia without any relief. She also endorses a headache for the past 3 days. Patient denies any medical history relevant to this ER visit. Labs Ordered: UA, CBC, CMP, lipase, urine hCG, COVID/flu/RSV swab Imaging Ordered: Abdominal x-ray Medications Ordered: Tylenol 1 g p.o., ciprofloxacin 500 mg p.o. Results: Patient's abdominal x-ray indicates No radiographic evidence of obstruction or ileus. Moderate volume of colonic feces. Patient's urinalysis indicates patient has a UTI. Diagnosis: Constipation, urinary tract infection Patient Education/Shared MDM: Results are lab work and x-ray shared with patient. Patient was offered an abdominal CT scan but she declines stating ?I just want to go home. She declines any recent alcohol use or upper abdominal pain. Pt endorses improvement following medication administration. She was strongly advised to maintain hydration status upon discharge and follow-up with her PCP as soon as possible. She will be discharged home with a prescription for Miralax, Colace, Ciprofloxacin and Pyridium. Strict return precautions provided, especially if symptoms haven't improved within 24 hours or worsen. Patient verbalized understanding and is in agreement with plan. Vital signs stable at time of discharge. All questions answered. Differential Diagnosis Differential diagnosis: Likely abdominal pain, acute appendicitis, constipation, gastroenteritis and small bowel obstruction Lab Data Attestation: I reviewed the patient's lab results. 09/02/24 21:34 09/02/24 21:34 Labs: Lab Results 09/02/24 09/02/24 09/02/24 Range/Units 21:31 21:34 22:39 WBC 11.4 H (4.5-10.0) K/mm3 RBC 3.95 L (4.2-5.4) M/mm3 Hgb 11.5 L (12.0-15.0) g/dL Hct 36.2 L (37.0-47.0) % MCV 91.6 (80-100) fl MCH 29.1 (26-34) pg MCHC 31.8 L (32-36) g/dl RDW 12.8 (11.5-14.5) % Plt Count 224 (150-375) k/mm3 MPV 9.6 (7.4-10.4) fl Immature Gran % (Auto) 1.0 H (0-0.5) % Neut % (Auto) 80.6 H (45.5-73.1) % Lymph % (Auto) 6.0 L (18.3-44.2) % Randolph % (Auto) 12.2 H (2.6-8.5) % Eos % (Auto) 0.0 (0-4.4) % Baso % (Auto) 0.2 (0.2-1.2) % Lymph # (Auto) 0.68 L (0.9-3.2) K/mm3 Randolph # (Auto) 1.4 H (0.1-0.6) K/mm3 Eos # (Auto) 0.0 (0-0.3) K/mm3 Baso # (Auto) 0.0 (0.0-0.1) K/mm3 Abs Immat Gran (auto) 0.11 H (0.00-0.031) K/mm3 Absolute Neuts (auto) 9.2 H (1.3-6.7) K/mm3 Absolute Nucleated RBC 0.000 (0.0-0.012) K/mm3 Nucleated RBC % 0.0 (0.0-0.2) % Sodium 130 L (137-145) mmol/L Potassium 4.0 (3.4-5.0) mmol/L Chloride 95 L (98-107) mmol/L Carbon Dioxide 28 (22-30) mmol/L Anion Gap 7 (4-12) mmol/L BUN 10 (7-17) mg/dL Creatinine 0.86 (0.7-1.0) mg/dL Estim Creat Clear Calc 87 ml/min Estimated GFR > 60 (59 - ) Glucose 111 H (65-110) mg/dL Calcium 8.8 (8.4-10.2) mg/dL Total Bilirubin 0.8 (0.2-1.3) mg/dL AST 58 H (14-36) U/L ALT 76 H (6-35) U/L Alkaline Phosphatase 186 H (38-126) U/L Total Protein 7.0 (6.3-8.2) g/dL Albumin 4.0 (3.5-5.1) g/dL Lipase 26 (23-300) U/L Urine Color Yellow (Yellow) Urine Appearance Cloudy H (Clear) Urine pH 6.0 (5.0-9.0) Ur Specific [place] 1.016 (1.001-1.035) Urine Protein 2+ H (Negative) mg/dL Urine Glucose (UA) Negative (Negative) mg/dL Urine Ketones Trace H (Negative) mg/dL Ur Blood (Man) 2+ H (Negative) Urine Nitrate Positive H (Negative) Urine Bilirubin Negative (Negative) Urine Urobilinogen 1.0 (<2.0) mg/dL Leukocyte Esterase Rfl 2+ H (Negative) ROCHELLE/UL Urine RBC 6-10 H (0-2) /hpf Urine WBC 51-100 H (0-3) /hpf Ur Squamous Epith Cells Moderate (Few) /hpf Urine Bacteria 4+ H /hpf Urine Casts 0-2 POC Urine HCG, Qual (Negative) Influenza A (RT-PCR) Negative (Negative) Influenza B (RT-PCR) Negative (Negative) RSV (RT-PCR) Negative (Negative) SARS-CoV-2 RNA (RT-PCR) Negative (Negative) 09/02/24 Range/Units 22:46 WBC (4.5-10.0) K/mm3 RBC (4.2-5.4) M/mm3 Hgb (12.0-15.0) g/dL Hct (37.0-47.0) % MCV (80-100) fl MCH (26-34) pg MCHC (32-36) g/dl RDW (11.5-14.5) % Plt Count (150-375) k/mm3 MPV (7.4-10.4) fl Immature Gran % (Auto) (0-0.5) % Neut % (Auto) (45.5-73.1) % Lymph % (Auto) (18.3-44.2) % Randolph % (Auto) (2.6-8.5) % Eos % (Auto) (0-4.4) % Baso % (Auto) (0.2-1.2) % Lymph # (Auto) (0.9-3.2) K/mm3 Randolph # (Auto) (0.1-0.6) K/mm3 Eos # (Auto) (0-0.3) K/mm3 Baso # (Auto) (0.0-0.1) K/mm3 Abs Immat Gran (auto) (0.00-0.031) K/mm3 Absolute Neuts (auto) (1.3-6.7) K/mm3 Absolute Nucleated RBC (0.0-0.012) K/mm3 Nucleated RBC % (0.0-0.2) % Sodium (137-145) mmol/L Potassium (3.4-5.0) mmol/L Chloride (98-107) mmol/L Carbon Dioxide (22-30) mmol/L Anion Gap (4-12) mmol/L BUN (7-17) mg/dL Creatinine (0.7-1.0) mg/dL Estim Creat Clear Calc ml/min Estimated GFR (59 - ) Glucose (65-110) mg/dL Calcium (8.4-10.2) mg/dL Total Bilirubin (0.2-1.3) mg/dL AST (14-36) U/L ALT (6-35) U/L Alkaline Phosphatase (38-126) U/L Total Protein (6.3-8.2) g/dL Albumin (3.5-5.1) g/dL Lipase (23-300) U/L Urine Color (Yellow) Urine Appearance (Clear) Urine pH (5.0-9.0) Ur Specific [place] (1.001-1.035) Urine Protein (Negative) mg/dL Urine Glucose (UA) (Negative) mg/dL Urine Ketones (Negative) mg/dL Ur Blood (Man) (Negative) Urine Nitrate (Negative) Urine Bilirubin (Negative) Urine Urobilinogen (<2.0) mg/dL Leukocyte Esterase Rfl (Negative) ROCHELLE/UL Urine RBC (0-2) /hpf Urine WBC (0-3) /hpf Ur Squamous Epith Cells (Few) /hpf Urine Bacteria /hpf Urine Casts POC Urine HCG, Qual Negative (Negative) Influenza A (RT-PCR) (Negative) Influenza B (RT-PCR) (Negative) RSV (RT-PCR) (Negative) SARS-CoV-2 RNA (RT-PCR) (Negative) Imaging Data Attestation: I personally reviewed and interpreted this imaging study as follows: Radiologist's impression: ITS Impressions Abdomen X-Ray 09/02/24 22:45 IMPRESSION: No radiographic evidence of obstruction or ileus. Moderate volume of colonic feces. Discharge Plan Discharge Clinical Impression: Constipation, Urinary tract infection, Dehydration, mild Patient Disposition: Home, Self-Care Condition: Stable Instructions: Antibiotic Form, Constipation (ED), Urinary Tract Infection in Women (ED) Additional Instructions: Please return to the ER with any worsening symptoms. Follow-up with primary care provider as soon as possible. Take all medications as prescribed, including regularly scheduled medications. Complete your full dose of antibiotics. Patient Language: Namibian Prescriptions: New ciprofloxacin HCl 250 mg tablet 250 mg PO Q12H Qty: 6 0RF phenazopyridine [Pyridium] 100 mg tablet 100 mg PO TID PRN (Reason: pain) Qty: 6 0RF polyethylene glycol 3350 [Miralax] 17 gram powder in packet 17 g PO BID Qty: 30 0RF docusate sodium [Colace] 100 mg capsule 100 mg PO BID Qty: 20 0RF Follow-up/Referrals: PHYSICIAN,REVIT DRAFTER [Primary Care Provider] - Brad Ann MD [Physician] - (primary care) Time of Disposition: 23:21
--- OUTSIDE RECORDS SUMMARY | 2024-09-02 22:01 | XMS_ITS | Referral Summary ---
Author Organization [facility] Medical Office Building A Address [address] [place] [address] Care Team Providers Care Sequins Spooler Name Role Phone Stormy Montanez MD Unavailable [phone] No, Physician Primary Care Provider Encounters Date Type Department Care Team Description 08/10/2024 Telephone [facility] Medical [facility] Obstetrical Gynecology [address] [place] [address] Chela Silver MD 07/06/2024 Telephone [facility] Obstetrical Gynecology [address] [place] [address] Chela Silver MD from Last [...] sertraline Assessment & Plan (07/24/2020 4:36 PM LEAD LOADER): Overall improved from previous, but recently worsening without medications. Start Sertraline - as above Encouraged to see counselor/therapist Given list of area counselors that she may try contacting for appt. 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 Continue current regimen with sertraline Assessment & Plan (09/04/2020 3:18 PM CDT): Improving, but not at goal Increase sertraline to 50mg daily Assessment & Plan (07/24/2020 4:34 PM LEAD LOADER): Depression and anxiety - not well controlled [...] 018 Assessment & Plan (05/02/2017 10:00 AM LEAD LOADER): I advised patient to continue on current [...] certainly Assessment & Plan (04/29/2017 4:18 PM LEAD LOADER): Still waiting for results of wound culture [...] on file Legal Sex Female 9:49 AM LEAD LOADER Gender Identity Female 06/24/2022 11:39 AM LEAD LOADER Sexual Orientation Choose not to disclose 2022 11:39 AM LEAD LOADER 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 Not on file Not on file Last Filed Vital Signs Vital Sign Reading Time Taken Comments Blood Pressure 120/76 04/23/2024 9:34 AM LEAD LOADER Pulse 86 10/30/2023 12:48 AM CDT Temperature 36.9 C (98.4 F) 10/29/2023 11:00 PM CDT Respiratory Rate 20 10/30/2023 12:48 AM CDT Oxygen Saturation 100% 10/29/2023 11:00 PM CDT Inhaled Oxygen Concentration - - Weight 69.9 kg (154 lb) 04/23/2024 9:34 AM LEAD LOADER Height 175.3 cm (5' 9.02 ) 04/23/2024 9:34 AM CS T Body Mass Index 22.73 04/23/2024 9:34 AM LEAD LOADER Plan of Treatment Not on file Procedures Procedure Name Priority Date/Time Associated Diagnosis Comments HEPATITIS C ANTIBODY Routine 04/23/2024 10:10 AM LEAD LOADER Well woman exam HIGH RISK HPV DNA DETECTION WITH GENOTYPING Routine 04/23/2024 9:54 AM LEAD LOADER from Last 3 Months or Most Recently Relevant to Health Maintenance Results * Hepatitis C antibody Blood (04/23/2024 10:10 AM LEAD LOADER) Hep C Ab Nonreactive Nonreactive Comment: Antibodies [...] on 2019. Blood 04/23/2024 10:1 0 AM LEAD LOADER 04/23/2024 2:22 PM LEAD LOADER us Chela Silver MD LAB MICROBIOLOGY - GENERAL ORDERABLES Final Result [facility] [address] [facility] [place] [address] * High Risk HPV DNA Detection with Genotyping (Molecular component) (04/23/2024 9:54 AM LEAD LOADER) HPV HR 16 Not Detected Not Detected [facility] Comment:Testing performed by : [facility], [address] [place]., [address] HPV HR 18 Not Detected Not Detected [facility] Comment:Testing performed by : [facility], [address] [place]., [address] HPV HR Non 16/18 Not Detected Not [...] test have been verified by the [facility] Molecular Infectious Disease laboratory. Correlate with separately reported cytology results, as applicable. Interpretive data last revised 22 Testing performed by: [facility], [address] [facility], [place]., [address] Endocervical 04/23/2024 9:54 AM LEAD LOADER 04/27/2024 5:31 PM LEAD LOADER Chela Silver MD LAB BODY FLUIDS AND STOOLS ORDERABLES Final Result [facility] [address] [facility] [place] [address] [facility] from Last 3 Months or Most Recently Relevant to Health Maintenance Insurance [facility] IDPA IDPA Care Teams Sequins Spooler Relationship Specialty Start Date End Date No, Physician PCP - General 10/16/23 Stormy Montanez MD [address] [place] [address] Obstetrics and Gynecology 11/20/16
--- OUTSIDE RECORDS SUMMARY | 2024-09-02 22:01 | XMS_ITS | Encounter Summary ---
Author Organization [facility] Address [address] [place] [address] Phone Care Team Providers Care Frameman Name Role Phone Eduardo Lr MD Primary Care Provider Stormy Montanez MD Unavailable [phone] No, Physician Primary Care Provider [phone] Encounter Details Date Type Department Care Team (Late st Contact Info) Description 09/29/2017 Orders Only [facility] Provider, MD [place] [address] [place] [address] Social History Tobacco Use Types Packs/Day Years Used Date Smoking Tobacco: Heavy Smoker Cigarettes 1 11 Smokeless Tobacco: Never Comments:Smoking History Pac ks/day: 1 Packs Alcohol Use Standard Drinks/Week Comments Yes 0 (1 standard drink = 0.6 oz pur e alcohol) Comments No Sex and Gender Information Value Date Recorded Sex Assigned at Not on file Legal Sex Female 9:49 AM MULTI SHARE PROGRAM COORDINATOR Gender Identity Female 06/24/2022 11:39 AM MULTI SHARE PROGRAM COORDINATOR Sexual Orientation Choose not to disclose 2022 11:39 AM MULTI SHARE PROGRAM COORDINATOR 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
--- OUTSIDE RECORDS SUMMARY | 2024-09-02 22:01 | XMS_ITS | Encounter Summary ---
Author Organization [facility] Address [address] [place] [address] Phone Care Team Providers Care Structural Rigger Name Role Phone Eduardo Lr MD Primary Care Provider Stormy Montanez MD Unavailable [phone] No, Physician Primary Care Provider [phone] Encounter Details Date Type Department Care Team (Late st Contact Info) Description 08/22/2017 Orders Only [facility] ProviderLashell MD [address] [place] [address] Social History Tobacco Use Types Packs/Day Years Used Date Smoking Tobacco: Heavy Smoker Cigarettes 1 11 Smokeless Tobacco: Never Comments:Smoking History Pac ks/day: 1 Packs Alcohol Use Standard Drinks/Week Comments Yes 0 (1 standard drink = 0.6 oz pur e alcohol) Comments No Sex and Gender Information Value Date Recorded Sex Assigned at Not on file Legal Sex 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 [facility] Provider MD LAB BLOOD ORDERABLES Jaja l Result * DISCHARGE LABORATORY CUMULATIVE REPORT (08/22/2017 12:00 AM CDT) Narrative 08/22/2017 12:00 AM CDT Ordered by an unspecified provider. [facility] Provider MD LAB BLOOD ORDERABLES Jaja l Result documented in this encounter Visit Diagnoses Not on filedocumented in this encounter Additional Health Concerns Infection Onset Date Last Indicated Resolved Time COVID: Suspected 09/27/2021 09/27/2021 09/27/2021 9:00 PM CDT documented as of this encounter Care Teams Structural Rigger Relationship Specialty Start Date End Date Eduardo Lr MD PCP - General 08/30/16 07/11/20 No, Physician PCP - General 10/16/23 Stormy Montanez MD [address] [place] [address] Obstetrics and Gynecology 11/20/16 documented as of this encounter
--- OUTSIDE RECORDS SUMMARY | 2024-09-02 22:01 | XMS_ITS | Clinical Summary ---
Author Organization [facility] Medical Office Building A Address [address] [place] [address] Care Team Providers Care Rn Recovery Name Role Phone Stormy Montanez MD Unavailable [phone] No, Physician Primary Care Provider [phone] Allergies Active Allergy Reactions Criticality Noted Date [...] sertraline Assessment & Plan (07/24/2020 4:36 PM ULTRASOUND SPEC): Overall improved from previous, but recently worsening without medications. Start Sertraline - as above Encouraged to see counselor/therapist Given list of area counselors that she may try contacting for appt. 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 Continue current regimen with sertraline Assessment & Plan (09/04/2020 3:18 PM CDT): Improving, but not at goal Increase sertraline to 50mg daily Assessment & Plan (07/24/2020 4:34 PM ULTRASOUND SPEC): Depression and anxiety - not well controlled [...] 018 Assessment & Plan (05/02/2017 10:00 AM ULTRASOUND SPEC): I advised patient to continue on current [...] certainly Assessment & Plan (04/29/2017 4:18 PM ULTRASOUND SPEC): Still waiting for results of wound culture [...] Type Department Care Team Description 08/10/2024 Telephone [facility] Obstetrical Gynecology [address] [place] [address] Chela Silver MD 07/06/2024 Telephone [facility] Obstetrical Gynecology [address] [place] [address] Chela Silver MD from Last [...] on file Legal Sex Female 9:49 AM ULTRASOUND SPEC Gender Identity Female 06/24/2022 11:39 AM ULTRASOUND SPEC Sexual Orientation Choose not to disclose 2022 11:39 AM ULTRASOUND SPEC 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 Not on file Not on file Obstetrics History Para Term AB IAB SAB Ectopic Multiple Livin g Live Births 0 0 0 0 0 0 0 0 0 0 0 Last Filed Vital Signs Vital Sign Reading Time Taken Comments Blood Pressure 120/76 04/23/2024 9:34 AM ULTRASOUND SPEC Pulse 86 10/30/2023 12:48 AM CDT Temperature 36.9 C (98.4 F) 10/29/2023 11:00 PM CDT Respiratory Rate 20 10/30/2023 12:48 AM CDT Oxygen Saturation 100% 10/29/2023 11:00 PM CDT Inhaled Oxygen Concentration - - Weight 69.9 kg (154 lb) 04/23/2024 9:34 AM ULTRASOUND SPEC Height 175.3 cm (5' 9.02 ) 04/23/2024 9:34 AM CS T Body Mass Index 22.73 04/23/2024 9:34 AM ULTRASOUND SPEC Plan of Treatment Health Maintenance Due Date [...] HEPATITIS C ANTIBODY Routine 04/23/2024 10:10 AM ULTRASOUND SPEC Well woman exam HIGH RISK HPV DNA DETECTION WITH GENOTYPING Routine 04/23/2024 9:54 AM ULTRASOUND SPEC from Last 3 Months or Most Recently Relevant to Health Maintenance Results * Hepatitis C antibody Blood (04/23/2024 10:10 AM ULTRASOUND SPEC) Hep C Ab Nonreactive Nonreactive Comment: Antibodies [...] on 2019. Blood 04/23/2024 10:1 0 AM ULTRASOUND SPEC 04/23/2024 2:22 PM ULTRASOUND SPEC Chela Silver MD LAB MICROBIOLOGY - GENERAL ORDERABLES Final Result [facility] [facility] Department [place] [address] * High Risk HPV DNA Detection with Genotyping (Molecular component) (04/23/2024 9:54 AM ULTRASOUND SPEC) HPV HR 16 Not Detected Not Detected [facility] Comment:Testing performed by : [facility], [address] [place]., [address] HPV HR 18 Not Detected Not Detected [facility] Comment:Testing performed by : [facility], [address] [place]., [address] HPV HR Non 16/18 Not Detected Not [...] this test have been verified by the [facility] Molecular Infectious Disease laboratory. Correlate with separately reported cytology results, as applicable. Interpretive data last revised 22 Testing performed by: [facility], [address] [place]., [address] Endocervical 04/23/2024 9:54 AM ULTRASOUND SPEC 04/27/2024 5:31 PM ULTRASOUND SPEC Chela Silver MD LAB BODY FLUIDS AND STOOLS ORDERABLES Final Result [facility] [address] [facility] [place] [address] [facility] from Last 3 Months or Most Recently Relevant to Health Maintenance Insurance [employer] HMO [employer] HMO MDPA IDPA Care Teams Rn Recovery Relationship Specialty Start Date End Date No, Physician PCP - General 10/16/23 Stormy Montanez MD [address] [place] [address] Obstetrics and Gynecology 11/20/16
--- OUTSIDE RECORDS SUMMARY | 2024-09-02 22:01 | XMS_ITS | Encounter Summary ---
Author Organization [facility] Address [address] [place] [address] Phone Care Team Providers Care Binding Stitcher Name Role Phone Eduardo Lr MD Primary Care Provider Stormy Montanez MD Unavailable [phone] No, Physician Primary Care Provider [phone] Encounter Details Date Type Department Care Team (Late st Contact Info) Description 05/20/2017 Orders Only [facility] Provider, MD [place] [address] [place] [address] Social History Tobacco Use Types Packs/Day Years Used Date Smoking Tobacco: Heavy Smoker Cigarettes 1 11 Smokeless Tobacco: Never Comments:Smoking History Pac ks/day: 1 Packs Alcohol Use Standard Drinks/Week Comments Yes 0 (1 standard drink = 0.6 oz pur e alcohol) Comments No Sex and Gender Information Value Date Recorded Sex Assigned at Not on file Legal Sex Female 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 Gender Identity Female 06/24/2022 11:39 AM PLATE GLASS GRINDER Sexual Orientation Choose not to disclose 2022 11:39 AM PLATE GLASS GRINDER 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 us Historical Provider LAB BLOOD ORDERABLES Jaja l Result documented in this encounter Visit Diagnoses Not on filedocumented in this encounter Additional Health Concerns Infection Onset Date Last Indicated Resolved Time COVID: Suspected 09/27/2021 09/27/2021 09/27/2021 9:00 PM CDT documented as of this encounter Care Teams Binding Stitcher Relationship Specialty Start Date End Date Eduardo Lr MD PCP - General 08/30/16 07/11/20 No, Physician PCP - General 10/16/23 Stormy Montanez MD [address] [place] [address] Obstetrics and Gynecology 11/20/16 documented as of this encounter
[2024-09-02] MEDS: ACETAMINOPHEN 500 MG TABLET 1000 MG PO (22:05)
[2024-09-02 22:19] LABS: Influenza A QL RT-PCR Negative (Negative); Influenza B QL RT-PCR Negative (Negative); RSV RNA, RT-PCR Negative (Negative); SARS-CoV-2 RNA PCR Negative (Negative)
[2024-09-02 22:48] LABS: BEDSIDEPREGUCG Negative (Negative)
[2024-09-02 22:51] LABS: Add Urine Microscopic? YES; Appearance Urine Cloudy (Clear); Bacteria Urine 4+ /hpf; Bilirubin Urine Negative (Negative); Blood Urine 2+ (Negative); Color Urine Yellow (Yellow); Glucose Urine UA Negative (Negative); Ketones Urine Trace mg/dL (Negative); Leukocyte Esterase Ur 2+ LEU/UL (Negative); Nitrate Urine Positive (Negative); Non Pathogenic Casts 0-2; Protein Urine 2+ mg/dL (Negative); Specific Grav Ur 1.016 (1.001-1.035); Squamous Epithelial Cell Urine Moderate /hpf (Few); WBC Urine 51-100 /hpf (0-3)
[2024-09-02] MEDS: CIPROFLOXACIN 500 MG TAB PO (23:14)
== END 2024-09-02 23:34 | disposition home or self-care (01) ==
PROVIDERS: Student in an Organized Health Care Education/Training Program; Emergency Provider Registered Nurse
DX: K59.00 Constipation, unspecified (principal); N39.0 Urinary tract infection, site not specified; E86.0 Dehydration; Z20.822 Contact with and (suspected) exposure to COVID-19
CPT/HCPCS: 36415; 74018; 80053; 81001; 81025; 83690; 85025; 87637; 99283; A9270